=== PATIENT | female | born 1980 | race Caucasian/White ===

== ENCOUNTER → 2021-01-26 | Day surgery (SDC) | payer OTHER ==
[~2021-01-26] MED LIST: DEXAMETHASONE SOD PHOS INJ 4 MG/ML VIAL ONE; EPINEPHRINE HCL 1:1000 1ML 1 MG/ML AMP ONE; FENTANYL CITRATE/PF 100MCG/2 ML INJ ONE; KLONOPIN0.5 MG PO; LIDOCAINE 1% W/EPINEPHRINE 20 ML VIAL ONE; LIDOCAINE HCL 2% LOCAL INJ 5 ML SDV VIAL INJ ONE; LO LOESTRIN FE1 EACH PO; LUNESTA2 MG PO; MIDAZOLAM HCL 2 MG/2 ML VIAL ONE; NP THYROID60 MG PO; ONDANSETRON HCL INJ 2MG/ML 2ML 2 MG/ML VIAL ONE; OZEMPIC1 MG/0.75 SC; PRISTIQ ER50 MG PO; PROPOFOL IV EMULSION 10 MG/ML 20 ML VIAL ONE; ROCURONIUM BROMIDE 10 MG/ML 5ML VIAL IV ONE; SEVOFLURANE INHAL SOLN 250 ML PEN BTL ONE; SPIRONOLACTONE25 MG PO; VITAMIN D3125 MCG PEG
[2021-01-26 11:10] VITALS: BP 131/78
== END | disposition home or self-care (01) ==
LOC: OR 06:31
PROVIDERS: ATTEND Otolaryngology Otolaryngology/Facial Plastic Surgery
DX: J32.0 Chronic maxillary sinusitis (principal); J32.2 Chronic ethmoidal sinusitis; J32.1 Chronic frontal sinusitis; J34.2 Deviated nasal septum; J34.89 Other specified disorders of nose and nasal sinuses; E88.81 Metabolic syndrome and other insulin resistance; F32.9 Major depressive disorder, single episode, unspecified
CPT/HCPCS: 30520; 31253; 31267; 81025; 88300; 88305; J0171; J1100; J2001; J2250; J2405; J2704; J3010; 88304